=== PATIENT | male | born 1975 | race American Indian/Alaskan Native ===

== ENCOUNTER 2016-08-13 15:39 | Emergency (ER) | payer BC ==
[2016-08-13 17:14] VITALS: BP 141/63
[2016-08-13] MEDS ORDERED: BENTYL IM ONE (17:21)
[2016-08-13] MEDS ORDERED: ZOFRAN ODT PO ONE (17:21)
--- NOTE | 2016-08-13 17:23 | Emergency Department Report ---
Chief Complaint: Abdominal Pain Stated Complaint: POSS FOOD POISON/HBS Time Seen by Provider: 08/13/16 17:20 - HPI History of Present Illness: PT thinks he has food poisoning. PT c/o n/v/d since yesterday after eating beef. pt denies abd pain but states his stomach feels sore. pmh- dm - ROS Review of Systems: n/v/d + abd pain "soreness" - Exam Vital Signs: Vital Signs 08/13/16 17:10 Temperature 99.5 F Pulse Rate 79 Respiratory 20 Rate Blood Pressure 141/63 O2 Sat by Pulse 100 Oximetry Physical Exam: obese male, no acute distress abd soft and non tender at this time. MSE screening note: Focused history and physical exam performed. Due to findings the following was ordered: labs, meds ED Disposition for MSE Condition: Stable
[2016-08-13 18:21] LABS: Red Blood Count TNR M/mm3 (3.65-5.03); White Blood Count TNR K/mm3 (4.5-11.0)
[2016-08-13 18:28] LABS: Albumin 3.9 g/dL (3.9-5); Albumin/Globulin Ratio 1.1 %; Alkaline Phosphatase 65 units/L (35-129); Bilirubin,Total 1.2 mg/dL (0.1-1.2); Blood Urea Nitrogen 9 mg/dL (9-20); Calcium 9.4 mg/dL (8.4-10.2); Carbon Dioxide 24 mmol/L (22-30); Glucose 257 mg/dL (75-100); Lipase 238 units/L (13-60); Total Protein 7.4 g/dL (6.3-8.2)
[2016-08-13 18:29] LABS: Anion Gap 18 mmol/L; Chloride 99.3 mmol/L (98-107); Potassium 4.2 mmol/L (3.6-5.0); Sodium 137 mmol/L (137-145)
[2016-08-13 18:31] LABS: Hematocrit TNR % (35.5-45.6); Hemoglobin TNR gm/dl (11.8-15.2)
[2016-08-13 18:32] LABS: Mean Corpuscular HGB Conc TNR % (32-34); Mean Corpuscular Hemoglobin TNR pg (28-32); Mean Corpuscular Volume TNR fl (84-94); Platelet Count TNR K/mm3 (140-440); Red Cell Distribution Width TNR % (13.2-15.2)
[2016-08-13 18:33] LABS: Basophils % (Auto) TNR % (0.0-1.8); Eosinophils % (Auto) TNR % (0.0-4.3)
[2016-08-13 18:34] LABS: Diff Status TNR; Mean Platelet Volume TNR fl (6-12)
[2016-08-13 19:11] LABS: Alanine Aminotransferase 20 units/L (7-56)
[2016-08-13 21:37] LABS: Basophils % (Auto) 0.6 % (0.0-1.8); Eosinophils % (Auto) 0.5 % (0.0-4.3); Hematocrit 42.7 % (35.5-45.6); Hemoglobin 13.7 gm/dl (11.8-15.2); Mean Corpuscular HGB Conc 32 % (32-34); Mean Corpuscular Hemoglobin 27 pg (28-32); Mean Corpuscular Volume 84 fl (84-94); Platelet Count 228 K/mm3 (140-440); Red Blood Count 5.09 M/mm3 (3.65-5.03); Red Cell Distribution Width 14.4 % (13.2-15.2); White Blood Count 5.2 K/mm3 (4.5-11.0)
[2016-08-13] MEDS ORDERED: NACL 0.9% 1000 ML 1,000 ML IV ONE (23:32)
--- NOTE | 2016-08-13 23:54 | Emergency Department Report ---
HPI - General Chief Complaint: Abdominal Pain Time Seen by Provider: 08/13/16 17:20 - HPI HPI: This is a 41-year-old male who presents to the emergency department, dropped off by a friend, with complaint of abdominal pain, nausea, vomiting and diarrhea since yesterday evening. The patient thinks he might gotten food poisoning as the symptoms began about 5-6 hours after he was eating some [employer]. He has a primary care doctor but cannot remember their name. His past medical history is insulin dependent diabetes and he has not had any insulin since yesterday secondary to his symptoms. He otherwise is not taken anything for symptoms prior to presentation. No recent travel or sick contacts at home. ED Past Medical Hx - Past Medical History Hx Diabetes: Yes - Surgical History Past Surgical History?: No - Social History Smoking Status: Never Smoker Substance Use Type: None - Medications Home Medications: Home Medications Medication Instructions Recorded Confirmed Last Taken Type Acetaminophen/Codeine [Tylenol #3] 1 tab PO Q6H PRN #10 tab 06/02/15 Unknown Rx Cyclobenzaprine [Flexeril 10 MG 10 mg PO TID PRN #12 tablet 06/02/15 Unknown Rx TAB] Ibuprofen [Motrin 800 MG tab] 800 mg PO Q8HR PRN #30 tablet 06/02/15 Unknown Rx Famotidine [Pepcid] 20 mg PO QDAY #10 tablet 08/14/16 Unknown Rx Ondansetron [Zofran Odt] 4 mg PO Q8H PRN #10 tab.rapdis 08/14/16 Unknown Rx ED Review of Systems ROS: Stated complaint: POSS FOOD POISON/HBS Other details as noted in HPI Comment: All other systems reviewed and negative Constitutional: denies: chills, fever Eyes: denies: eye pain, eye discharge, vision change ENT: denies: ear pain, throat pain Respiratory: denies: cough, shortness of breath, wheezing Cardiovascular: denies: chest pain, palpitations Gastrointestinal: abdominal pain, nausea, vomiting, diarrhea Genitourinary: denies: urgency, dysuria Musculoskeletal: denies: back pain, joint swelling, arthralgia Skin: denies: rash, lesions Neurological: denies: headache, weakness, paresthesias Physical Exam - Physical Exam Vital Signs: Vital Signs 08/13/16 17:10 Temperature 99.5 F Pulse Rate 79 Respiratory 20 Rate Blood Pressure 141/63 O2 Sat by Pulse 100 Oximetry Physical Exam: GENERAL: The patient is well-developed well-nourished. HEENT: Normocephalic. Atraumatic. Extraocular motions are intact. Patient has moist mucous membranes. Pupils equal reactive to light bilaterally. NECK: Supple. Trachea is midline. CHEST/LUNGS: Clear to auscultation. There is no respiratory distress noted. HEART/CARDIOVASCULAR: Regular. There is no tachycardia. There is no gallop rub or murmur. ABDOMEN: Abdomen is soft. There is some tenderness to palpation to the epigastrium and right lower quadrants of the abdomen. No guarding or rebound tenderness. Patient has normal bowel sounds. There is no abdominal distention. Obese habitus. SKIN: There is no rash. There is no edema. There is no diaphoresis. NEURO: The patient is awake, alert, and oriented. The patient is cooperative. The patient has no focal neurologic deficits. The patient has normal speech. MUSCULOSKELETAL: There is no tenderness or deformity. There is no limitation range of motion. There is no evidence of acute injury. ED Course Vital Signs 08/13/16 17:10 Temperature 99.5 F Pulse Rate 79 Respiratory 20 Rate Blood Pressure 141/63 O2 Sat by Pulse 100 Oximetry ED Medical Decision Making - Lab Data Result diagrams: 08/13/16 21:27 08/13/16 17:52 - Radiology Data Radiology results: report reviewed CT of the abdomen and pelvis with IV contrast does not show any acute abdominal or pelvic pathology. - Medical Decision Making 41-year-old male presents the emergency department with a 24-hour history of nausea, vomiting, diarrhea and some abdominal discomfort. Vital signs stable including being afebrile. Patient's labs show hyperglycemia and an elevated lipase of about 250. The blood sugar is about 270 but the patient does not appear to be in DKA or HHNK and had not taken his insulin in the past 24 hours secondary to his symptoms. There is no leukocytosis. There is no elevation in the bilirubin or LFTs. However due to the elevated lipase level, a CT of the abdomen and pelvis was done with IV contrast. This resulted as normal without any acute intra-abdominal or pelvic pathology. Patient most likely has food poisoning versus a viral syndrome. He was given IV fluid resuscitation, Zofran and Pepcid. He will go home with both Pepcid and Zofran ODT. He will be given referrals for primary care for follow-up. He will return to the ER with any intractable vomiting, intractable fever or any acute process. - Differential Diagnosis food poisoning, pancreatitis, cholelithiasis, cholecystitis, viral syndrome Critical Care Time: No Critical care attestation.: If time is entered above; I have spent that time in minutes in the direct care of this critically ill patient, excluding procedure time. ED Disposition Clinical Impression: Dehydration, Hyperglycemia Nausea & vomiting Qualifiers: Vomiting type: unspecified Vomiting Intractability: non-intractable Qualified Code(s): R11.2 - Nausea with vomiting, unspecified Abdominal pain Qualifiers: Abdominal location: generalized Qualified Code(s): R10.84 - Generalized abdominal pain Diarrhea Qualifiers: Diarrhea type: unspecified type Qualified Code(s): R19.7 - Diarrhea, unspecified Disposition: DISCHARGED TO HOME OR SELFCARE Is pt being admited?: No Condition: Stable Instructions: Acute Nausea and Vomiting (ED), Abdominal Pain (ED), Acute Diarrhea (ED), Dehydration (ED), Diabetic Hyperglycemia (ED) Additional Instructions: Please follow-up with a primary care doctor in the next few days. Increase your oral rehydration. Return to the emergency department with any intractable vomiting and inability to stay hydrated, or any acute distress. Prescriptions: Famotidine [Pepcid] 20 mg PO QDAY #10 tablet Ondansetron [Zofran Odt] 4 mg PO Q8H PRN #10 tab.rapdis PRN Reason: Nausea Referrals: PRIMARY CARE, [Primary Care Provider] - 3-5 Days Time of Disposition: 02:43
[2016-08-14] MEDS ORDERED: NACL ONE (00:17)
--- NOTE | 2016-08-14 02:07 | Cat Scan Report ---
FINAL REPORT EXAM: CT ABDOMEN PELVIS W CON HISTORY: Abd pain TECHNIQUE: CT of the abdomen and pelvis with contrast. Oral contrast was not given. Coronal and sagittal reformatted images were submitted. PRIORS: None. FINDINGS: The visualized lung bases are unremarkable. The dome of the liver is incompletely imaged. The liver is decreased the decreased in attenuation. The spleen, adrenal glands and pancreas are normal in appearance. There is no evidence of cholelithiasis or biliary ductal dilatation. The kidneys are normal in size and contour without evidence of hydronephrosis or nephrolithiasis. There is symmetric renal enhancement and excretion. Small calcified fat density lesion is seen in the right omentum, likely benign.. No free fluid or free air is seen. There is no significant bowel thickening or dilatation. The appendix is normal. The aorta is normal in caliber. No abnormally enlarged lymph identified. The pelvic structures are unremarkable. There is bilateral sacroiliac joint space narrowing and sclerosis. IMPRESSION: No acute intra-abdominal abnormality.
[2016-08-14] MEDS ORDERED: PEPCID IV ONE (02:10)
== END 2016-08-14 03:45 | disposition home or self-care (01) ==
LOC: ED 15:39
DX: E86.0 Dehydration (principal); E11.65 Type 2 diabetes mellitus with hyperglycemia; R11.2 Nausea with vomiting, unspecified; R10.84 Generalized abdominal pain; R19.7 Diarrhea, unspecified
CPT/HCPCS: 36415; 74177; 80053; 82962; 83690; 85025; 96361; 96372; 96374; 99284; J0500; J7030; Q9967; J1815; Q0162

== ENCOUNTER 2017-05-02 08:49 | Day surgery (SDC) | payer BC ==
--- NOTE | 2017-05-02 09:17 | Short Stay Summary ---
Short Stay Documentation Date of service: 05/02/17 Narrative H&P: 41 year old presents for EGD for evaluation of GERD and colonoscopy in view of a family history of colon cancer in 2nd degree relatives and polyps in both parents. - History Principal diagnosis: GERD and family history of both colon cancer and polyps H&P: obtained from office - Allergies and Medications Current Medications: Allergies No Known Allergies Allergy (Verified 08/14/16 01:03) Home Medications Medication Instructions Recorded Confirmed Last Taken Type Ibuprofen [Motrin 800 MG tab] 800 mg PO Q8HR PRN #30 tablet 06/02/15 04/29/17 Unknown Rx Famotidine [Pepcid] 20 mg PO QDAY #10 tablet 08/14/16 04/29/17 Unknown Rx Humalog 1 units SUB-Q DAILY 04/29/17 04/29/17 Unknown History Lisinopril 1 tab PO DAILY 04/29/17 04/29/17 Unknown History metFORMIN 1,000 mg PO DAILY 04/29/17 04/29/17 Unknown History - Hospital course Hospital course: Uneventful EGD and colonoscopy. - Disposition Condition at discharge: Good Disposition: DC-01 TO HOME OR SELFCARE - Discharge Diagnoses (1) Colon polyp Status: Acute (2) Internal hemorrhoids Status: Acute (3) GERD (gastroesophageal reflux disease) Status: Acute (4) Family history of colon cancer Status: Acute (5) Family history of colonic polyps Status: Acute Short Stay Discharge Plan Activity: other (no driving today) Diet: other (may resume usual diet) Additional Instructions: Patient to call for pathology results in 10-14 days. Recommend repeat in 2 years in view of today's prep quality. Follow up with: IVONNE PORTER MD [Primary Care Provider] - 7 Days
[2017-05-02] MEDS ORDERED: XYLOCAINE MPF 2% ONE (11:00)
[2017-05-02] MEDS ORDERED: NACL 0.9% 1000 ML 1,000 ML IV SCH (11:00)
[2017-05-02] MEDS ORDERED: ROBINUL ONE (11:00)
[2017-05-02] MEDS ORDERED: DIPRIVAN 10 MG/ML IV ONE ×3 (11:33)
[2017-05-02] MEDS ORDERED: SUBLIMAZE ONE (11:33)
[2017-05-02] MEDS ORDERED: WATER FOR IRRIG STERILE IR ONE (12:06)
--- NOTE | 2017-05-02 12:10 | Operative Report ---
Operative Report Operative Report: Date of procedure: 05/02/2017 Preprocedure diagnosis: 1. Gastroesophageal reflux disease 2. Family history colon cancer and colon polyps Post procedure diagnosis: Colon polyp, internal hemorrhoids, normal upper endoscopy Procedure name(s): 1. Esophagogastroduodenoscopy 2. Colonoscopy and snare polypectomy Surgeon: Rahul Carlisle MD Anesthesia: Monitored anesthesia care EBL: None Procedure: The indications, techniques, potential complications and alternatives , had been discussed in full detail prior to the date of the exam, and once again on the day of the exam. Questions were encouraged and answered, and consent was thereby obtained. The patient was placed in the left lateral decubitus position, and was medicated by anesthesia services. See the anesthesia records for details. The tip of a Fujinon video panendoscope was passed without difficulty through the pharynx and into the esophagus which appeared normal throughout its entire length. The instrument was advanced into the stomach and air was insufflated. The stomach distended well, gastric folds were normal in thickness and contour, the pylorus was patent and there was no retained content. What may appear to be a single erosion on one of the gastric images was due to suction artifact. The gastric exam was normal. The instrument was advanced through the pylorus into the duodenum. No pathology was seen in the bulb or the post bulbar duodenum to below the level of the ampulla. Retroflexion in the stomach disclosed no pathology involving the lesser curvature, fundus or cardia. The endoscope was then withdrawn with repeat examination of the stomach, esophagogastric junction and esophagus. There were no abnormal findings. The procedure was very well tolerated. He was then placed in position for colonoscopy. The anal sphincter was digitally dilated. The digital exam was unremarkable. The tip of an adult Fujinon video colonoscope was inserted through the anal sphincter and into the rectal vault. It was then advanced proximally under continuous visualization of the lumen to the cecum without difficulty. The prep was only fair. Frequent lavage and suctioning were required to adequately visualize mucosa. Within limitations of the prep, no pathology was seen in the cecum. The appendiceal orifice and ileocecal valve appeared normal. Cannulation of the valve revealed normal terminal ileum. From the cecum, the instrument was then slowly withdrawn with careful circumferential examination of the colonic mucosa , with lavage and suctioning as needed. No pathology was found in the ascending colon, hepatic flexure, transverse colon or splenic flexure. A 4 mm sessile polyp was excised from the descending colon with a cold snare and retrieved. There was no significant bleeding. The remainder of the descending colon appeared normal, as did the sigmoid colon and rectum from the forward view. Retroflexion in the rectum revealed internal hemorrhoids. The instrument was straightened and withdrawn. The procedure was very well tolerated. Post procedure he was monitored in the recovery area of the GI lab to ensure stability prior to his release. See the outpatient record for details regarding instructions to patient, medications and plans for follow-up. Final diagnosis: 1. Normal upper endoscopy 2. Sessile polyp, 4 mm, descending colon 3. Internal hemorrhoids 4. Otherwise normal colonoscopy and terminal ileum, within limitations of the prep. Due to quality of prep, very small neoplastic lesions, aberrations of fine mucosal detail or other subtle pathology cannot be fully ruled out, and for this reason repeat colonoscopy within 2 years has been recommended in view of the family history. Colon screening information: No prior colon screening. Next recommended colonoscopy in 2 years. Rahul Carlisle M.D. Dictated 05/02/2017 at 12:06 PM
[2017-05-02 12:31] VITALS: BP 137/75
--- NOTE | 2017-05-02 13:03 | Post Anesthesia Evaluation ---
- Post Anesthesia Evaluation Patient Participated: Yes Airway Patent: Yes Stable Respiratory Function: Yes Temp > 96.8F: Yes Pain Manageable: Yes Adequeate Hydration: Yes Anesthesia Complications: No
== END 2017-05-02 08:50 | disposition home or self-care (01) ==
LOC: GIO 08:49
PROVIDERS: ATTEND Internal Medicine Gastroenterology
DX: Z12.11 Encounter for screening for malignant neoplasm of colon (principal); D12.4 Benign neoplasm of descending colon; K64.8 Other hemorrhoids; K21.9 Gastro-esophageal reflux disease without esophagitis; E11.9 Type 2 diabetes mellitus without complications; E66.01 Morbid (severe) obesity due to excess calories; Z68.43 Body mass index [BMI] 50.0-59.9, adult; Z79.4 Long term (current) use of insulin; Z83.71 Family history of colonic polyps; Z80.0 Family history of malignant neoplasm of digestive organs
CPT/HCPCS: 43235; 45385; 88305; J2704; J3010; J7030

== ENCOUNTER 2017-09-24 08:02 | Emergency (ER) | payer BC, OTHER ==
[2017-09-24 09:05] LABS: INR 0.86 (0.87-1.13)
[2017-09-24 09:06] LABS: Partial Thromboplastin Time 24.8 Sec. (24.2-36.6)
[2017-09-24 09:09] LABS: Alanine Aminotransferase 22 units/L (7-56); Albumin 3.8 g/dL (3.9-5); BUN/Creatinine Ratio 22; Blood Urea Nitrogen 13 mg/dL (9-20); Calcium 9.4 mg/dL (8.4-10.2); Hemolysis Index 14
[2017-09-24 09:15] LABS: Eosinophils % (Auto) 0.4 % (0.0-4.3); Hematocrit 41.2 % (35.5-45.6); Hemoglobin 13.2 gm/dl (11.8-15.2); Mean Corpuscular HGB Conc 32 % (32-34); Mean Corpuscular Hemoglobin 27 pg (28-32); Mean Corpuscular Volume 85 fl (84-94); Mean Platelet Volume 8.2 fl (6-12); Monocytes % (Auto) 8.8 % (0.0-7.3); Platelet Count 271 K/mm3 (140-440); Red Blood Count 4.87 M/mm3 (3.65-5.03)
[2017-09-24 09:16] LABS: Basophils # (Auto) 0.1 K/mm3 (0.0-0.1); Basophils % (Auto) 1.2 % (0.0-1.8); Lymphocytes # (Auto) 1.9 K/mm3 (1.2-5.4); Monocytes # (Auto) 0.5 K/mm3 (0.0-0.8)
--- NOTE | 2017-09-24 10:48 | Emergency Department Report ---
ED General Adult HPI - General Chief complaint: Extremity Problem,Nontraumatic Stated complaint: LT LEG BLEEDING (VARICOUS VEIN) Time Seen by Provider: 09/24/17 10:39 Source: patient Mode of arrival: Ambulatory Limitations: No Limitations - History of Present Illness Initial comments: This is a somewhat morbidly obese 42-year-old male who reports the fourth episode of spontaneous varicose vein bleeding. Episode occurred at 6:30 this a.m. It has not recurred. He states that the pressure dressing made of feel like he was having a charley horse but prior to that he had no leg pain at all. He had no recent travel or leg swelling. He is not on an anticoagulant. -: Sudden Location: left, lower extremity Severity scale (0 -10): 5 Quality: other ("charley horse") Consistency: intermittent Improves with: none Worsens with: none Associated Symptoms: denies other symptoms - Related Data Home Medications Medication Instructions Recorded Confirmed Last Taken Lisinopril 1 tab PO DAILY 04/29/17 05/02/17 05/01/17 metFORMIN 500 mg PO Q4H 04/29/17 05/02/17 05/01/17 AtorvaSTATin 40 mg PO DAILY 05/02/17 05/02/17 05/01/17 Glimepiride 4 mg PO DAILY 05/02/17 05/02/17 05/01/17 Pantoprazole 40 mg PO DAILY 05/02/17 05/02/17 05/01/17 Previous Rx's Medication Instructions Recorded Last Taken Type Famotidine [Pepcid] 20 mg PO QDAY #10 tablet 08/14/16 Unknown Rx Allergies Allergy/AdvReac Type Severity Reaction Status Date / Time No Known Allergies Allergy Verified 08/14/16 01:03 ED Review of Systems ROS: Stated complaint: LT LEG BLEEDING (VARICOUS VEIN) Other details as noted in HPI Constitutional: denies: chills, fever Eyes: denies: eye pain, eye discharge, vision change ENT: denies: ear pain, throat pain Respiratory: denies: cough, shortness of breath, wheezing Cardiovascular: denies: chest pain, palpitations Endocrine: no symptoms reported Gastrointestinal: denies: abdominal pain, nausea, diarrhea Genitourinary: denies: urgency, dysuria Musculoskeletal: as per HPI. denies: back pain, joint swelling, arthralgia Skin: denies: rash, lesions Neurological: denies: headache, weakness, paresthesias Psychiatric: denies: anxiety, depression Hematological/Lymphatic: as per HPI. denies: easy bleeding, easy bruising ED Past Medical Hx - Past Medical History Previous Medical History?: Yes Hx Hypertension: Yes Hx Diabetes: Yes Hx GERD: Yes Additional medical history: VARICOSE VEIN RUPTURE - Surgical History Past Surgical History?: Yes Additional Surgical History: HEART CATH - Social History Smoking Status: Never Smoker Substance Use Type: Alcohol, Prescribed - Medications Home Medications: Home Medications Medication Instructions Recorded Confirmed Last Taken Type Famotidine [Pepcid] 20 mg PO QDAY #10 tablet 08/14/16 04/29/17 Unknown Rx Lisinopril 1 tab PO DAILY 04/29/17 05/02/17 05/01/17 History metFORMIN 500 mg PO Q4H 04/29/17 05/02/17 05/01/17 History AtorvaSTATin 40 mg PO DAILY 05/02/17 05/02/17 05/01/17 History Glimepiride 4 mg PO DAILY 05/02/17 05/02/17 05/01/17 History Pantoprazole 40 mg PO DAILY 05/02/17 05/02/17 05/01/17 History ED Physical Exam - General Limitations: No Limitations General appearance: obese - Head Head exam: Present: atraumatic, normocephalic - Eye Eye exam: Present: normal appearance - ENT ENT exam: Present: mucous membranes moist - Neck Neck exam: Present: normal inspection - Respiratory Respiratory exam: Present: normal lung sounds bilaterally. Absent: respiratory distress - Cardiovascular Cardiovascular Exam: Present: regular rate, normal rhythm. Absent: systolic murmur, diastolic murmur, rubs, gallop - GI/Abdominal GI/Abdominal exam: Present: soft, normal bowel sounds. Absent: distended, tenderness, guarding, rebound, rigid - Rectal Rectal exam: Present: deferred - Extremities Exam Extremities exam: Present: other (superficial erythematous pain left calf with clot noted no bleeding. No phlebitis. No leg swelling.). Absent: calf tenderness - Back Exam Back exam: Present: normal inspection - Neurological Exam Neurological exam: Present: alert, oriented X3 - Psychiatric Psychiatric exam: Present: normal affect, normal mood - Skin Skin exam: Present: warm, dry, intact, normal color. Absent: rash ED Course Vital Signs 09/24/17 09/24/17 09/24/17 08:05 09:10 09:12 Temperature 97.7 F 98.3 F Pulse Rate 73 75 Respiratory 18 18 18 Rate Blood Pressure 160/88 Blood Pressure 120/74 [Right] O2 Sat by Pulse 97 97 97 Oximetry ED Medical Decision Making - Lab Data Result diagrams: 09/24/17 08:35 09/24/17 08:35 Laboratory Results - last 24 hr 09/24/17 09/24/17 09/24/17 08:34 08:35 08:35 WBC 5.9 RBC 4.87 Hgb 13.2 Hct 41.2 MCV 85 MCH 27 L MCHC 32 RDW 13.0 L Plt Count 271 Lymph % (Auto) 33.0 [place] % (Auto) 8.8 H Eos % (Auto) 0.4 Baso % (Auto) 1.2 Lymph # 1.9 [place] # 0.5 Eos # 0.0 Baso # 0.1 Seg Neutrophils % 56.6 Seg Neutrophils # 3.3 PT 12.1 L INR 0.86 L APTT 24.8 Sodium Potassium Chloride Carbon Dioxide Anion Gap BUN Creatinine Estimated GFR BUN/Creatinine Ratio Glucose Calcium Total Bilirubin AST ALT Alkaline Phosphatase Total Protein Albumin Albumin/Globulin Ratio Blood Type O POSITIVE Antibody Screen Negative 09/24/17 08:35 WBC RBC Hgb Hct MCV MCH MCHC RDW Plt Count Lymph % (Auto) [place] % (Auto) Eos % (Auto) Baso % (Auto) Lymph # [place] # Eos # Baso # Seg Neutrophils % Seg Neutrophils # PT INR APTT Sodium 137 Potassium 3.9 Chloride 98.4 Carbon Dioxide 28 Anion Gap 15 BUN 13 Creatinine 0.6 L Estimated GFR > 60 BUN/Creatinine Ratio 22 Glucose 210 H Calcium 9.4 Total Bilirubin 0.70 AST 13 ALT 22 Alkaline Phosphatase 69 Total Protein 7.0 Albumin 3.8 L Albumin/Globulin Ratio 1.2 Blood Type Antibody Screen Critical care attestation.: If time is entered above; I have spent that time in minutes in the direct care of this critically ill patient, excluding procedure time. ED Disposition Clinical Impression: Bleeding from varicose vein Type 2 diabetes mellitus Qualifiers: Diabetes mellitus long term care pharmacist insulin use: without long term care pharmacist use Diabetes mellitus complication status: without complication Qualified Code(s): E11.9 - Type 2 diabetes mellitus without complications Disposition: DC-01 TO HOME OR SELFCARE Is pt being admited?: No Does the pt Need Aspirin: No Condition: Stable Instructions: Diabetes Mellitus Type 2 in Adults (ED), Varicose Veins (ED) Additional Instructions: Elevate legs. Rest. Definitive care should be pursued through a vascular surgeon. See referral. Return any significant leg pain or swelling. Referrals: YOSSI WANG MD [Staff Physician] - 3-5 Days Time of Disposition: 11:12
[2017-09-24] MEDS ORDERED: NORCO 5/325 PO ONE (10:59)
[2017-09-24] MEDS ORDERED: FLEXERIL PO ONE (11:00)
[2017-09-24 11:49] VITALS: BP 128/99
== END 2017-09-24 12:04 | disposition home or self-care (01) ==
LOC: ED 08:02
DX: I83.892 Varicose veins of left lower extremity with other complications (principal); E11.9 Type 2 diabetes mellitus without complications; I10 Essential (primary) hypertension; K21.9 Gastro-esophageal reflux disease without esophagitis
CPT/HCPCS: 36415; 80053; 85025; 85610; 85730; 86850; 86900; 86901; 99284